=== PATIENT | male | born 2000 | race Caucasian/White ===

== ENCOUNTER 2022-12-18 01:10 | Emergency (ER) | payer BC, MEDICAID, SELFPAY ==
--- NOTE | ~2022-12-18 | XR_ITS ---
XR hand LT min 3V DATE: 12/18/2022 02:33 INDICATION: Multiple bites. Diffuse hand tenderness. TECHNIQUE: 3 views COMPARISON: None FINDINGS: Mild subcutaneous emphysema is noted in the metacarpophalangeal areas dorsally. No radiopaq ue foreign body. No fracture, dislocation, periosteal reaction or bone destruction. Joint spaces are preserved. No erosive changes. IMPRESSION: Subcutaneous emphysema in the metacarpophalangeal areas; no radiopaque foreign body or zuhair ny abnormality Reviewed, dictated and finalized at location A. IMPRESSION: Subcutaneous emphysema in the metacarpophalangeal areas; no radiopa que foreign body or bony abnormality
--- NOTE | ~2022-12-18 | XR_ITS ---
XR hand RT min 3V DATE: 12/18/2022 02:34 INDICATION: Swelling and tenderness second and third metacarpophalangeal areas. Multiple cat bites. TECHNIQUE: 3 views COMPARISON: 11/28/2017 left first digit FINDINGS: Old fracture deformity of first metacarpal bone. No radiopaque foreign body, subcutaneous e mphysema, recent fracture, dislocation, periosteal reaction or bone destruction, erosive change or ch ondrocalcinosis. Joint spaces are preserved. IMPRESSION: Negative Reviewed, dictated and finalized at location A. IMPRESSION: Negative
[2022-12-18 01:16] VITALS: BP 140/96; PULSE 69; RESP 20; TEMP 36.8; O2SAT 100
--- NOTE | 2022-12-18 02:14 | ED.ANIMALBIT ---
HPI - Animal Bite General Chief Complaint: Animal Bite <MARIA LUISA Williamson Last Filed: 12/18/22 03:40> Stated Complaint: cat bite <MARIA LUISA Williamson Last Filed: 12/18/22 03:40> Time Seen by Provider: 12/18/22 02:12 <MARIA LUISA Williamson Last Filed: 12/18/22 03:40> History of Present Illness HPI narrative: 22-year-old male here for evaluation of numerous cat scratches and bites to his bilateral hand sustained earlier today. Patient states that his cat ran out in the yard and while he was attempting to bring it back in the house the cat retaliated and bit, scratched both of his hands. Patient did sustain a fall and has had pain in his hand since. He is unsure of his last tetanus shot. Cat is up-to-date on its rabies vaccine. Denies any fevers, chills, nausea, vomiting. <MARIA LUISA Williamson Last Filed: 12/18/22 03:40> Related Data Allergies/Adverse Reactions: Allergies Allergy/AdvReac Type Severity Reaction Status Date / Time coconut Allergy Severe Swelling Verified 11/28/17 21:59 <MARIA LUISA Williamson Last Filed: 12/18/22 03:40> Review of Systems Review of Systems: Gen.: Denies fevers or chills Eyes: Denies eye pain or visual change ENT: Denies congestion Respiratory: Denies shortness of breath or cough CV: Denies chest pain or palpitations GI: Denies abdominal pain nausea, emesis or diarrhea denies burning, urgency, frequency or hematuria Musculoskeletal: reports bilateral hand swelling and pain Neuro: Denies numbness, tingling, weakness or focal weakness Skin: numerous scratches to bilateral hands Except as documented, all other systems reviewed and negative <MARIA LUISA Williamson Last Filed: 12/18/22 03:40> Exam Narrative: Gen: Alert, oriented, no acute distress Eyes: EOMI, no icterus Pulm: Respirations even and unlabored, symmetric thorax expansion, no audible stridor or visible cyanosis CV: Regular rate per telemetry GI: No distension, no voluntary/involuntary guarding Neuro: AOx4, moves all extremities without apparent difficulty or weakness, follows commands Skin: there are numerous superficial scratches and bites to the dorsum of the bilateral hands. there is no overlying cellulitis or streaking up the arm. Psych: Normal mood/affect, insight/judgement good, adequate fund of knowledge, recent/remote memory intact <Gem Banks PA-C - Last Filed: 12/18/22 03:40> Course CARE DIRECTOR/PA Physician Supervision This is a was performed by both a physician and an APC. I performed all aspects of the MDM as documented w/ the following additions: 22-year-old male presenting ED after getting to an altercation with his cat. He stay multiple scratches and bites to his hand. Her cleaned extensively news treated with Augmentin. Patient has been given return precautions for infection. All questions answered. Patient in agreement w/ disposition. <Paulo Bernstein MD - Last Filed: 12/22/22 19:53> Vital Signs Vital signs: Vital Signs Temperature 98.2 F 12/18/22 01:16 Pulse Rate 69 12/18/22 01:16 Respiratory Rate 20 12/18/22 01:16 Blood Pressure 140/96 H 12/18/22 01:16 Pulse Oximetry 100 12/18/22 01:16 Oxygen Delivery Room Air 12/18/22 01:16 Temperature 98.2 F 12/18/22 01:16 Pulse Rate 77 12/18/22 03:38 Respiratory Rate 20 12/18/22 03:38 Blood Pressure 122/77 12/18/22 03:38 Pulse Oximetry 99 12/18/22 03:38 Oxygen Delivery Room Air 12/18/22 01:16 <Gem Banks PA-C - Last Filed: 12/18/22 03:40> Vital Signs Temperature 98.2 F 12/18/22 01:16 Pulse Rate 69 12/18/22 01:16 Respiratory Rate 20 12/18/22 01:16 Blood Pressure 140/96 H 12/18/22 01:16 Pulse Oximetry 100 12/18/22 01:16 Oxygen Delivery Room Air 12/18/22 01:16 Temperature 98.2 F 12/18/22 01:16 Pulse Rate 77 12/18/22 03:38 Respiratory Rate 20 12/18/22 03:38 Blood Pressure 1
[2022-12-18] MEDS: AMOXICILLIN/CLAVULANATE K 875-125 MG TAB 1 TABLET PO (02:17)
[2022-12-18] MEDS: TETANUS,DIPHTHERIA,AC PERTUSSIS ADULT (0.5 ML) BOOSTRIX IM (02:18)
[2022-12-18] MEDS: HYDROcodone/acetaminophen (*CRX) 5-325 MG TABLET 1 TAB PO (02:18)
--- NOTE | 2022-12-18 03:06 | PC.NURSE ---
Bites and scratches to bilateral hands cleaned with wound cleanser.
[2022-12-18] MEDS: IBUPROFEN 600 MG TABLET PO (03:19)
[2022-12-18 03:38] VITALS: BP 122/77; PULSE 77; RESP 20; O2SAT 99
== END 2022-12-18 03:39 | disposition home or self-care (01) ==
PROVIDERS: Emergency Provider Physician Assistant
DX: S61.452A Open bite of left hand, initial encounter (principal); S61.451A Open bite of right hand, initial encounter; W55.01XA Bitten by cat, initial encounter; Z23 Encounter for immunization
CPT/HCPCS: 73130; 90471; 90715; 99283; A9270